=== PATIENT | male | born 1945 | race Caucasian/White ===

== ENCOUNTER 2016-04-12 21:24 | Emergency (ER) | payer MEDICARE ==
[~2016-04-12] VITALS: Ht 177.8 cm; Wt 100.0 kg
[~2016-04-12 21:24] MED LIST: IPRASOL INH; PRED20 PO; PROS5TAB PO; SYMB160A INH; TAMS0.4C4 PO; VENTAER INH
[2016-04-12 21:25] VITALS: BP 160/74; PULSE 98; RESP 18; TEMP 98.1; O2SAT 95
[2016-04-12 23:49] VITALS: BP 159/77; PULSE 93; RESP 18; O2SAT 95
[2016-04-12] MEDS ORDERED: TEMA30CA PO (23:52)
[2016-04-13] MEDS ORDERED: ACYCLOVIR INJ 500 MG in SODIUM CHLORIDE 0.9% INJ 100 ML IV ONE (01:30)
[2016-04-13] MEDS ORDERED: methylPREDNISolone SOD SUCC 125 MG/2 ML VIAL IV PUSH ONE (01:30)
[2016-04-13 02:12] LABS: AUTOMATED NEUTROPHIL # 2.8 TH/MM3 (1.8-7.7); BASOPHIL % 0.5 % (0.0-2.0); EOSINOPHIL # 0.3 TH/MM3 (0-0.4); EOSINOPHIL % 6.8 % (0.0-4.0); HEMATOCRIT 39.1 % (39.0-51.0); HEMO FLAGS DIFF FINAL; LYMPH % 18.3 % (9.0-44.0); LYMPHOCYTE # 0.9 TH/MM3 (1.0-4.8); MEAN CELL VOLUME 84.2 FL (80.0-100.0); MEAN CORPUSCULAR HEMOGLOBIN 28.7 PG (27.0-34.0); MEAN CORPUSCULAR HGB CONC 34.1 % (32.0-36.0); MONO % 14.1 % (0.0-8.0); NEUT % 60.3 % (16.0-70.0); PLATELET COUNT 135 TH/MM3 (150-450); RED BLOOD COUNT 4.64 MIL/MM3 (4.50-5.90); RED CELL DISTRIBUTION WIDTH 15.6 % (11.6-17.2); WHITE BLOOD COUNT 4.7 TH/MM3 (4.0-11.0)
[2016-04-13 02:26] LABS: BICARBONATE 31.2 MEQ/L (21.0-32.0); POTASSIUM 4.2 MEQ/L (3.5-5.1)
[2016-04-13] MEDS ORDERED: ACYC800T PO (03:02)
[2016-04-13] MEDS ORDERED: MEDR4PAK PO (03:03)
--- NOTE | 2016-04-13 03:03 | PD ---
HPI Chief Complaint: Skin Problem Time Seen by Provider: 01:29 Travel History International Travel<30 days: No Contact w/Intl Traveler<30days: No Traveled to known affect area: No History of Present Illness HPI 70-year-old male with history of lung cancer status post treatment, presents to the ER today with 2 days history of rash to the forehead on the left and going down his nose. He states he has been having some eye irritation as well on the left side. He denies any fevers, or any other symptoms. He does not know any exacerbating alleviating symptoms. He denies any use of new soaps. He does not know if he has had chickenpox before. Modifying Factors: None Associated Signs & Symptoms: Left forehead rash and left eye irritation Risk Factors: None PFSH Past Medical History Asthma: No Autoimmune Disease: No Cancer: Yes (lung) Cardiovascular Problems: No Chemotherapy: Yes (4 MONTHS) COPD: Yes Diabetes: No Diminished Hearing: Yes (BILATERAL) Endocrine: No Genitourinary: Yes Hepatitis: No Hiatal Hernia: No Immune Disorder: No Implanted Vascular Access Dvce: Yes (PORT RIGHT CHEST) Musculoskeletal: Yes Neurologic: No Psychiatric: No Reproductive: No Respiratory: Yes (COPD) Immunizations Current: Yes Radiation Therapy: Yes Sickle Cell Disease: No Sleep Apnea: No Thyroid Disease: No Tetanus Vaccination: > 5 Years Influenza Vaccination: Yes Past Surgical History Abdominal Surgery: No AICD: No Arteriovenous Shunt: No Cardiac Surgery: Yes (left upper lobe lobectomy) Ear Surgery: No Endocrine Surgery: No Eye Surgery: No Genitourinary Surgery: No Gynecologic Surgery: No Insulin Pump: No Joint Replacement: No Oral Surgery: No Pacemaker: No Thoracic Surgery: Yes (NEEDLE BIPOPSY L LUNG) Social History Alcohol Use: No Tobacco Use: No Substance Use: No Allergies-Medications (Allergen,Severity, Reaction): Coded Allergies: Adhesives (Verified Allergy, Severe, 01/01/16) Sulfa (Unverified Allergy, Unknown, not sure, 01/01/16) Reported Meds & Prescriptions Reported Meds & Active Scripts Active Reported Temazepam 30 Mg Cap 30 Mg PO HS PRN Ventolin Hfa 18 GM Inh (Albuterol Sulfate) 90 Mcg/Act Aer 2 Puff INH Q4H PRN Symbicort Inh (Budesonide/Formoterol Fumarate) 160-4.5 Mcg/Act Aero 2 Puff INH BID Tamsulosin (Tamsulosin HCl) 0.4 Mg Cap 0.4 Mg PO HS Duoneb (Ipratropium-Albuterol Neb) 0.5-2.5 Mg/3 Ml Neb 1 Nebule INH TID PRN Review of Systems Except as stated in HPI: all other systems reviewed are Neg Physical Exam Narrative GENERAL: Well-nourished, well-developed pleasant elderly male patient in no acute distress. SKIN: Warm and dry. There is a notable left midline and left-sided forehead vesicular lesion. Does not cross midline. HEAD: Normocephalic. EYES: No scleral icterus. No injection or drainage. Fluorescein exam did not reveal any signs of corneal ulceration or obvious bony operation or abnormalities. NECK: Supple, trachea midline. CARDIOVASCULAR: Regular rate and rhythm without murmurs, gallops, or rubs. RESPIRATORY: Breath sounds equal bilaterally. No accessory muscle use. GASTROINTESTINAL: Abdomen soft, non-tender, nondistended. MUSCULOSKELETAL: No cyanosis, or edema. BACK: Nontender without obvious deformity. No CVA tenderness. Data Data Last Documented VS Vital Signs Date Time Temp Pulse Resp B/P Pulse Ox O2 Delivery O2 Flow Rate FiO2 04/12/16 23:49 93 18 159/77 95 Room Air 04/12/16 21:25 98.1 Orders Complete Blood Count With Diff (04/13/16 01:29) Basic Metabolic Panel (Bmp) (04/13/16 01:29) Acyclovir Inj (Zovirax Inj) (04/13/16 01:30) Methylprednisolone So Succ Inj (Solumedr (04/13/16 01:30) Labs Laboratory Tests Test 04/13/16 01:53 White Blood Count 4.7 TH/MM3 Red Blood Count 4.64 MIL/MM3 Hemoglobin 13.3 GM/DL Hematocrit 39.1 % Mean Corpuscular Volume 84.2 FL Mean Corpuscular Hemoglobin 28.7 PG Mean Corpuscular Hemoglobin 34.1 % Concent Red Cell Distribution Width 15.6 % Platelet Count 135 TH/MM3 Mean Platelet Volume 8.1 FL Neutrophils (%) (Auto) 60.3 % Lymphocytes (%) (Auto) 18.3 % Monocytes (%) (Auto) 14.1 % Eosinophils (%) (Auto) 6.8 % Basophils (%) (Auto) 0.5 % Neutrophils # (Auto) 2.8 TH/MM3 Lymphocytes # (Auto) 0.9 TH/MM3 Monocytes # (Auto) 0.7 TH/MM3 Eosinophils # (Auto) 0.3 TH/MM3 Basophils # (Auto) 0.0 TH/MM3 CBC Comment DIFF FINAL Differential Comment Sodium Level 141 MEQ/L Potassium Level 4.2 MEQ/L Chloride Level 105 MEQ/L Carbon Dioxide Level 31.2 MEQ/L Anion Gap 5 MEQ/L Blood Urea Nitrogen 26 MG/DL Creatinine 1.24 MG/DL Estimat Glomerular Filtration 57 ML/MIN Rate Random Glucose 135 MG/DL Calcium Level 8.8 MG/DL MDM Medical Decision Making Medical Screen Exam Complete: Yes Emergency Medical Condition: Yes Medical Record Reviewed: Yes Differential Diagnosis Forehead rashallergic reaction versus zoster versus cellulitis Narrative Course Exam did not show any signs of left corneal involvement although patient does have some foreign body sensation in that area. I suspect zoster considering the appearance of the rash. At this point, he was given Solu-Medrol and acyclovir IV in the ER. There is no corneal involvement at this point and my plan would be to release him with by mouth treatment and close follow-up to primary care physician and ophthalmology. Return for any worsening in pain, vision change, rash, and as needed. The plan has been discussed with him and he states understanding. Diagnosis Primary Impression: ZOSTER WITHOUT COMPLICATIONS Referrals: Natividad Henao MD Med/Other Pt SpecificInfo: Prescription(s) given Scripts Methylprednisolone Dosepak (Medrol Dosepak)4 Mg Dspk4 Mg PO DIRECTED #1 DSPK Ref 0 Per Pharmacist direction Prov:Marquise Zazueta MD 04/13/16 Acyclovir 800 Mg Ely959 Mg PO 5 TIMES A DAY 7 Days Ref 0 Prov:Marquise Zazueta MD 04/13/16 Disposition: 01 DISCHARGE HOME Condition: Stable Marquise Zazueta MD Apr 13, 2016 03:03
[2016-04-13 03:50] VITALS: BP 170/77; PULSE 70; RESP 18; O2SAT 95
[2016-04-13] MEDS ORDERED: HYDR-3533 PO (03:54)
[2016-04-13] MEDS ORDERED: ACETAMINOPHEN/HYDROcodone 325 MG/5 MG TAB PO ONE (04:00)
== END 2016-04-13 04:13 | disposition home or self-care (01) ==
LOC: NEPE 21:24
DX: B02.9 Zoster without complications (principal); J44.9 Chronic obstructive pulmonary disease, unspecified; Z85.118 Personal history of other malignant neoplasm of bronchus and lung
CPT/HCPCS: 80048; 85025; 96365; 96375; 99283; J0133; J2930